=== PATIENT | male | born 1935 | race Caucasian/White ===

== ENCOUNTER 2022-10-10 14:09 | Observation (INO) | payer MEDICARE, OTHER, SELFPAY ==
[2022-10-10] VITALS (21 sets, daily range): BP systolic 116–158; BP diastolic 50–94; PULSE 57–94; RESP 13–20; TEMP 36.3–36.8; O2SAT 95–99; BMI 21.4
--- NOTE | 2022-10-10 | XR_ITS ---
WS: [id number] Left ankle, C-arm fluoroscopy views, 10/10/2022 1753 hours Clinical Data: ORIF LEFT ANKLE Comparison: Left ankle, yesterday, 1445 hours Findings: Dr. Chavira performed internal fixation of a bimalleolar fracture of the left ankle. XR/XR ankle LT min 3V* [id number] Impression: Internal fixation of bimalleolar fracture of left ankle.
--- NOTE | 2022-10-10 14:13 | XRR_ITS ---
PROCEDURE INFORMATION: Exam: XR Left Ankle Exam date and time: 10/10/2022 2:14 PM Age: 87 years old Clinical indication: Pain; Ankle; Left; Additional info: Injury TECHNIQUE: Imaging protocol: Radiologic exam of the Left ankle. Views: 3 or more views. COMPARISON: No relevant prior studies available. FINDINGS: Bones/joints: There is a displaced bimalleolar fracture with subluxation of the tibia in relation to the talus toward medial aspect of the ankle. A bone spurs present on the inferior calcaneus. Soft tissues: Soft tissue edema is seen in the lateral and anterior ankle XR/XR ankle LT min 3V* [id number] IMPRESSION: 1. Bimalleolar fracture dislocation as described. 2. Soft tissue edema lateral and anterior below ankle
--- NOTE | 2022-10-10 14:14 | ED_ITS ---
HPI - Fall General: Chief Complaint: Fall Stated Complaint: L Ankle Pain Time Seen by Provider: 10/10/22 14:09 Source: patient and EMS Mode of arrival: EMS Limitations: no limitations History of Present Illness: This gentleman was transported to the emergency department by EMS. He apparently had went out shopping today and returned home and upon getting out of his truck slipped on the ice twisting his left ankle. He could not bear weight and noted that seem to be deformed. He denied any other injury to include head injury, back neck injury. He denied loss of consciousness. EMS arrived on scene placed him in a position of comfort immobilize left ankle, gave him 100 mics of fentanyl and transported to the emergency department which and reported he remained stable throughout that process. Patient denies taking any blood thinning or anticoagulant medication. He denies any history of heart failure or heart disease arrhythmia etc. MD complaint: fall Fall from: standing Fall witnessed: no Place fall occurred: home Loss of consciousness: None Context: tripped/slipped Location of injury - extremities: Left: ankle Associated symptoms-after fall: Denies chest pain, headache(s) or neck pain Review of Systems Const: Denies: fever(s) or chills Eyes: Denies: change in vision or blurry vision Card: Denies: chest pain, palpitations, syncope or pre-syncope Resp: Denies: dyspnea, productive cough or non-productive cough GI: Denies: nausea or vomiting Musc: Reports: extremity pain, extremity swelling, joint pain and joint swelling; Denies: neck pain or back pain Skin/Breast: Denies: rash or pruritus Neuro: Denies: headache(s), numbness in extremities or weakness in extremities Ramone/Lymph: Denies: easy bruising or easy bleeding Physical Exam Narrative: EXAM NARRATIVE: Is alert and cooperative and in no acute distress. Const: COMMON NORMALS: no acute distress, average body habitus, patient oriented x3 and alert GENERAL APPEARANCE: cooperative and comfortable HENMT: COMMON NORMALS: normocephalic, atraumatic, Normal nasal mucous membranes and turbinates present and moist oral mucous membranes HEAD & SCALP: normocephalic and atraumatic FACE & SINUS: normal facial exam NOSE: Normal nasal mucous membranes and turbinates present Eye: COMMON NORMALS: Equal, round and reactive pupils present, EOMs intact bilaterally and conjunctivae normal CONJUNCTIVA: Yes conjunctivae normal PUPIL: Yes Equal, round and reactive pupils present Neck/C-Spine: CERVICAL SPINE: Yes cervical ROM normal, No Cervical spine tenderness, No step off deformity, No Paracervical muscle tenderness, No Paracervical spasm and No Trapezius muscle tenderness Chest: COMMONS NORMALS: normal inspection of the chest and normal palpation of entire chest wall Resp: COMMON NORMALS: normal respiratory effort, No retractions and clear to auscultation bilaterally EFFORT & INSPECTION: Yes able to speak in complete sentences AUSCULTATION: clear to auscultation bilaterally Cardio: COMMON NORMALS: regular rate, regular rhythm, No murmurs present (Cardio) and Peripheral pulses 2+ throughout RATE: regular rate RHYTHM: regular rhythm PERIPHERAL PULSES: Peripheral pulses 2+ throughout GI: COMMON NORMALS: Normal to inspection, nondistended, normoactive bowel sounds present and Soft to palpation PALPATION: Yes Soft to palpation : COMMON NORMALS: Yes no CVA tenderness BLADDER/KIDNEY EXAM: Yes no CVA tenderness Back/Pelvis: COMMON NORMALS: no CVA tenderness, thoracic and lumbar spine normal to inspection, no thoracic nor lumbar tenderness and thoraco-lumbar ROM normal PELVIS: Yes no pain with anterior-posterior compression and Yes no p ain with lateral compression Extremity: COMMON NORMALS: capillary refill normal and no calf tenderness LEFT LOWER EXTREMITY: Yes ankle joint (Is noted to have a varus deformity of his left ankle with tenting of the sk) OTHER: Apart from his left ankle injury no other extremity injury, deformity, abrasion, the tenderness noted on clinical examination Neuro: COMMON NORMALS: patient oriented x3, moves all extremities and no focal motor deficits SENSORIUM/ORIENTATION: Yes alert CRANIAL NERVES: Yes CN normal except as noted Psych: COMMON NORMALS: mental status grossly normal Skin: COMMON NORMALS: turgor normal NARRATIVE SKIN EXAM: He has tenting and skin breakdown over the left ankle medially. GENERAL SKIN EXAM: turgor normal Procedures Orthopedic Fracture Reduction Fracture #1: Time Out Performed: Yes Side: left (Ankle) Analgesia: procedural sedation (Fentanyl 0.5 mg/kg, propofol 0.5 mg/kg) Technique: direct manipulation Post Reduction X-rays Demonstrate: anatomical reduction Post-reduction neuro exam: intact Post-reduction vascular exam: intact Splint Applied: Yes (Posterior, stirrup splint) Patient Tolerated Procedure: well Additional Comments: Patient tolerated procedure well. No desaturation or other changes in vital signs throughout his procedural sedation. He was under constant monitoring by RN, attending physician as well as respiratory therapy. Course Reevaluation(s): Reevaluation #1: Patient remains clinically stable with normal vital signs at this time. I discussed his current condition and plans for orthopedic surgery to evaluate and plan for operative fixation of his ankle dislocation fracture. Time: 15:47 Consultations: Consultation #1: Discussed with orthopedic surgeon Dr. Horne. Discussed current presentation. Time: 14:28 Consultation #2: Discussed with Dr. Slaughter he agrees to admit the patient for orthopedic consultation Time: 15:48 Vital Signs: Vital signs: Vital Signs Temperature 98.3 F 10/10/22 14:09 Pulse Rate 61 10/10/22 14:55 Respiratory Rate 13 10/10/22 14:55 Blood Pressure 141/50 10/10/22 14:43 Pulse Oximetry 98 10/10/22 14:55 Oxygen Delivery Me thod 10/10/22 14:55 Oxygen Flow Rate 2 10/10/22 14:55 MDM - Fall Medical Decision Making 87-year-old gentleman who had a slip and ground-level fall on ice while getting out of his truck this morning. No associated head trauma, loss of conscious etc. No free injury syncope palpitations or other prodrome. Transported by EMS to our facility in stable condition immobilized. Upon arrival he was noted to have significant deformity of left ankle with tenting of skin. Initial preliminary movement of ankle mortise to reduce tenting. Subsequent x-rays revealed bimalleolar fracture. Patient was then treated with procedural sedation and a near anatomic reduction of his left ankle was performed and he was placed in immobilization with posterior and stirrup splint. Orthopedist was consulted who plans on taking him to the operating room later today for operative operative fixation. Patient was given 1 g of Ancef in the emergency department. Medical Records I reviewed the patient's medical records. Lab Data I reviewed the patient's lab results. 10/10/22 13:09 10/10/22 13:09 Radiology Impressions Ankle X-Ray 10/10/22 14:40 IMPRESSION: Marked improvement in the fracture alignment involving the distal tibia and fibula postreduction. Laboratory Results WBC 5.4 10^3/uL (4.0-10.0) 10/10/22 13:09 RBC 3.17 10^6/uL (4.1-5.3) L 10/10/22 13:09 Hgb 9.7 g/dL (11.7-16.6) L 10/10/22 13:09 Hct 31.4 % (42.0-52.0) L 10/10/22 13:09 MCV 99.1 fl (80-94) H 10/10/22 13:09 MCH 30.6 pg (28.0-34.0) 10/10/22 13:09 MCHC 30.9 g/dL (30.0-36.0) 10/10/22 13:09 RDW 16.2 % (12.1-15.1) H 10/10/22 13:09 Plt Count 169 10^3/cmm (130-400) 10/10/22 13:09 MPV 10.7 fL (7.4-10.4) H 10/10/22 13:09 Neut % (Auto) 63.4 % 10/10/22 13:09 Lymph % (Auto) 26.2 % 10/10/22 13:09 [place] % (Auto) 8.3 % 10/10/22 13:09 Eos % (Auto) 0.9 % 10/10/22 13:09 Baso % (Auto) 0.6 % 10/10/22 13:09 Neut # (Auto) 3.44 10^3/uL (1.8-7.7) 10/10/22 13:09 Lymph # (Auto) 1.4 10^3/uL (0.8-4.8) 10/10/22 13:09 [place] # (Auto) 0.5 10^3/uL (0.2-0.9) 10/10/22 13:09 Eos # (Auto) 0.1 10^3/uL (0.0-0.8) 10/10/22 13:09 Baso # (Auto) 0.0 10^3/uL (0.0-0.1) 10/10/22 13:09 Nucleated RBC % (auto) 0 % 10/10/22 13:09 Nucleated RBCs # 0.0 /100WBC 10/10/22 13:09 Sodium 139 mmol/L (136-145) 10/10/22 13:09 Potassium 3.6 mmol/L (3.5-5.1) 10/10/22 13:09 Chloride 108 mmol/L (98-107) H 10/10/22 13:09 Carbon Dioxide 18 mmol/L (22-29) L 10/10/22 13:09 Anion Gap 16.6 (5-19) 10/10/22 13:09 BUN 25 mg/dL (8-23) H 10/10/22 13:09 Creatinine 1.1 mg/dL (0.7-1.2) 10/10/22 13:09 GFR Calculation Not Reportable 10/10/22 13:09 Glucose 123 mg/dL (65-115) H 10/10/22 13:09 Calculated Osmolality 294 mOsm/kg (285-295) 10/10/22 13:09 Calcium 8.3 mg/dL (8.5-10.5) L 10/10/22 13:09 EKG Data EKG 1: I personally reviewed and interpreted this EKG as follows: Interpretation: Contemporaneous review of resting EKG reveals ventricular rate of 83 bpm. RI interval is shortened at 96 ms. QRS duration is normal. Corrected QT interval is also normal. He has a slight borderline leftward axis. Possible borderline right bundle branch block. No acute ST-T wave changes noted. No prior tracings within this medical record Discharge Plan Discharge Patient Disposition: Placed in Observation Clinical Impression: Open fracture dislocation of left ankle Coding Level of Care Code ED Inshore Undersea Warfare Officer for Esteban Fwkristine Exam Comprehensive
[2022-10-10] MEDS: ceFAZolin 1,000 MG in sodium chloride 0.9% (plus) 50 ML 100 MG IV ×2 (14:26→16:43)
[2022-10-10 14:32] LABS: Basophils % 0.6 %; Eosinophils # 0.1 10^3/uL (0.0-0.8); Eosinophils % 0.9 %; Hematocrit 31.4 % (42.0-52.0); Hemoglobin 9.7 g/dL (11.7-16.6); Lymphocytes # 1.4 10^3/uL (0.8-4.8); Lymphocytes % 26.2 %; Mean Corpuscular HGB Conc 30.9 g/dL (30.0-36.0); Mean Corpuscular Hemoglobin 30.6 pg (28.0-34.0); Mean Corpuscular Volume 99.1 fl (80-94); Mean Platelet Volume 10.7 fL (7.4-10.4); Monocytes # 0.5 10^3/uL (0.2-0.9); Monocytes % 8.3 %; Neutrophils # 3.44 10^3/uL (1.8-7.7); Neutrophils % 63.4 %; Nucleated Red Blood Cells % 0 %; Platelet Count 169 10^3/cmm (130-400); Red Blood Count 3.17 10^6/uL (4.1-5.3); Red Cell Distribution Width 16.2 % (12.1-15.1); White Blood Count 5.4 10^3/uL (4.0-10.0)
[2022-10-10] MEDS: fentaNYL 50 mcg/mL INJ 2mL 35 MCG IVP (14:38)
[2022-10-10] MEDS: propofol 10 mg/mL SDV 20 mL 40 MG IVP (14:39)
--- NOTE | 2022-10-10 14:40 | XR_ITS ---
WS: [id number] LEFT ANKLE: 2 VIEW(S) TECHNIQUE: AP and lateral. HISTORY: Postreduction. COMPARISON: Study earlier the same day. Much improved alignment involving the tibiotalar joint space. Ankle is been reduced with near normal alignment of the distal tibial and fibular fractures. Osteopenia. XR/XR ankle LT 2V [id number] IMPRESSION: Marked improvement in the fracture alignment involving the distal tibia and fib yash postreduction.
[2022-10-10 14:55] LABS: Anion Gap 16.6 (5-19); Blood Urea Nitrogen 25 mg/dL (8-23); Calcium 8.3 mg/dL (8.5-10.5); Carbon Dioxide 18 mmol/L (22-29); Chloride 108 mmol/L (98-107); Creatinine Clr Calc Pharmacy 45.1247; Glucose 123 mg/dL (65-115); Osmolality Calculated 294 mOsm/kg (285-295); Potassium 3.6 mmol/L (3.5-5.1); Sodium 139 mmol/L (136-145)
--- NOTE | 2022-10-10 15:23 | ECG_ITS ---
[facility] Test Date: 2022-10-10 Pat Name: Bernarda Mendoza Department: Room: Gender: Male General Duty Nurse: : 1935 Requested By: Enrique Donato Order Number: [id number] Aubree MD: Sagar Scott M.D. Measurements Intervals [place] Rate: 83 P: -27 AR: 96 QRS: -21 QRSD: 100 T: -8 QT: 400 QTc: 470 Interpretive Statements SINUS RHYTHM WITH SHORT AR INTERVAL WITH OCCASIONAL SUPRAVENTRICULAR PREMATURE COMPLEXES BORDERLINE LEFT AXIS DEVIATION [QRS AXIS < -20] INCOMPLETE RIGHT BUNDLE BRANCH BLOCK [90+ ms QRS DURATION, TERMINAL R IN V1/V2, 40+ ms S IN I/aVL/V4/V5/V6] VOLTAGE CRITERIA FOR LVH [MEETS CRITERIA IN ONE OF: R(aVL), S(V1), R(V5), R(V5/V6)+S(V1)] No previous ECG available for comparison Electronically Signed On 10-10-2022 16:27:16 PHYTOPATHOLOGY TEACHER by Sagar Scott M.D. [id number]
--- NOTE | 2022-10-10 16:08 | PM.CONSULT ---
Providers/Reason For Consult Consulting Physician/Specialty*: Kishor Chavira DO/orthopedic surgery Reason for Consult*: Left bimalleolar ankle fracture dislocation with medial skin tenting and impending open fracture Requesting Physician: Dr. Donato Attending Physician: Hospitalist History of Present Illness History of Present Illness Bernarda Mendoza is a 87 year old male sustained a ground-level fall on the ice getting out of his truck this morning. Denies any injury to his head or any loss of consciousness. Denies any syncopal or prodromal episodes. He was brought into the emergency department for evaluation of his left ankle as he had significant deformity no bleeding noted. Patient on x-rays was found to have bimalleolar ankle fracture dislocation of the left ankle. On examination by the emergency department was found to have skin tenting as result orthopedic surgery was consulted. Emergency department performed emergent reduction. Patient denies any history of diabetes mellitus. Denies any chest pain shortness of breath nausea or vomiting. Review of Systems General: Reports: 10 or more systems reviewed and unremarkable except in HPI and below Const: Denies: fever(s) Card: Denies: chest pain Resp: Denies: dyspnea GI: Denies: nausea or vomiting Musc: Reports: extremity pain, extremity swelling and joint swelling Medications/Allergies Home Medications Medication Instructions Recorded Confirmed Last Taken Type amlodipine 2.5 mg tablet (Norvasc) 2.5 mg PO DAILY 10/10/22 10/10/22 Unknown History ferrous sulfate 325 mg (65 mg 325 mg PO DAILY 10/10/22 10/10/22 Unknown History iron) tablet (FeroSul) fluconazole 200 mg tablet 200 mg PO DAILY 10/10/22 10/10/22 Unknown History Allergies Allergy/AdvReac Type Severity Reaction Status Date / Time nkda Allergy Unknown Uncoded 10/10/22 16:07 PFSH Acute PFSH: Medical History (Updated 10/10/22 @ 16:18 by Kishor Chavira DO) Fracture dislocation of left ankle Vitals/I&O/Wt Last Vital Signs Temp 98.3 F 10/10/22 14:09 Pulse 61 10/10/22 14:55 Resp 13 10/10/22 14:55 BP 141/50 10/10/22 14:43 Pulse Ox 98 10/10/22 14:55 O2 Del Method 10/10/22 14:55 O2 Flow Rate 2 10/10/22 14:55 10/10/22 10/10/22 10/10/22 06:59 14:59 22:59 Intake Total 50 / 50 Balance 50 / 50 Weight last 48 hrs Weight 145 lb Physical Exam Narrative: Constitutional?patient is alert and cooperative and in no acute distress HEENT normocephalic atraumatic Respiratory?no acute respiratory distress, no retractions MSK?examination of the left lower extremity demonstrates posterior short leg splint on in place well-padded splint limiting full examination however patient is able to wiggle toes he does endorse sensation tact light touch of the toes. Sensation intact to light touch to the SPN and DPN nerve distribution splint limits saphenous sural and tibial nerve distribution examination. Toes have brisk capillary refill less than 3 seconds. No tenderness palpation of the left knee or proximal tib-fib. Negative logroll bilaterally to the bilateral lower extremities. Secondary survey examination unremarkable is normal range of motion of the bilateral upper extremity joints and no pain with range of motion. Splint not taken down: previous clinical images from emergency department physician were reviewed and showed medial skin tenting and medial soft tissue compromise with no complete exposed bone and no active bleeding consistent with skin tenting and impending open injury if left alone. Data 10/10/22 13:09 10/10/22 13:09 Xray Ortho: My impression: Initial x-rays in the emergency department demonstrate a left bimalleolar fracture dislocation with concern for possible skin tenting on the medial side Postreduction by emergency department team x-rays show stable interval reduction joint appears to be located and splint applied, offloading of the medial soft tissue noted. A&P Assessment and plan (1) Fracture dislocation of left ankle: Left bimalleolar ankle fracture dislocation, with medial skin tenting and impending open injury Plan MDM: Patient is a 87-year-old male who sustained a slip on the ice sustaining a left bimalleolar ankle fracture dislocation brought to the emergency department was found to have medial skin tenting and wound compromise. No open wound with directly exposed bone and no active bleeding noted. At this point time concern for impending open injury if left alone. Emergency department consulted myself orthopedic surgery for recommendations. At this point time at emergency department team perform emergent closed reduction and splinting for stabilization and plan for taking to the OR today for left bimalleolar ankle fracture open reduction internal fixation to prevent an impending open injury. Given the medial compromise and attenuated skin and given his older age we will plan for ORIF of the distal fibula my hope is at that time the medial malleolus will be in appropriate alignment and will plan to bypass the proximal attenuated medial soft tissue over the medial malleolus and just percutaneously fix the medial malleolus with 4.0mm cannulated screws in order to avoid a open incision over already attenuated tissue. Patient understands and agrees with current plan. All questions answered. At this point time given the impending open nature this would recommend at this go to the OR emergently for surgical intervention. Patient understands risk benefits complication alternatives surgical and nonsurgical treatment options. Risks of surgery include but not limited to make a better make it worse, blood clot, heart attack, stroke, on table, wound complications, wound dehiscence, infection, malunion, nonunion, posttraumatic arthritis. Understanding these risks he agrees to proceed with surgical intervention we will get him added onto the surgery schedule emergently for left bimalleolar ankle fracture ORIF. N.p.o. Hospitalist to admit for medical management Reduced in the emergency department and placed in a splint Nonweightbearing left lower extremity Ice and elevate Pain control Perioperative antibiotics Plan for ORIF left bimalleolar ankle fracture emergently today. Coding Level of Care Code Acute Code for g Fwd Diagnoses Fracture dislocation of left ankle S82.892A Time Spent (min) 50
--- NOTE | 2022-10-10 16:16 | ANES.PREANE2 ---
Pre-Anesthetic Assessment Height/Weight: Height 1.75 m Weight 65.771 kg Temp Pulse Resp BP Pulse Ox O2 Del Method O2 Flow Rate 98.3 F 61 13 141/50 98 2 10/10/22 14:09 10/10/22 14:55 10/10/22 14:55 10/10/22 14:43 10/10/22 14:55 10/10/22 14:55 10/10/22 14:55 Preop Diagnosis: Left bimalleolar ankle fracture dislocation, skin tenting Operation Date: 10/10/22 16:30 Proposed Procedures p ORIF Ankle(Left) - Kishor Chavira, Familial anesthetic complications: none Was Beta Jeevan taken within 24 hours: N/A Was Clonidine taken within 24 hours: N/A Last intake: Intake Last Liquid Date 10/10/22 Last Liquid Time 11:00 Last Solid Date 10/10/22 Last Solid Time 11:00 Social No alcohol and No tobacco Exam alert, oriented x 3, clear to auscultation bilaterally and regular rate & rhythm Airway Submandibular: within normal limits Cervical ROM: within normal limits Mallampati: Class II Dentition: chipped CV/HEM Anemia and Hypertension Musc/skel left ankle frx Anesthetic Plan ASA status: 3 Anesthesia: General and Regional (specify below) (Discussed postop right pop blk for pain) Medications/Allergies Home Medications Medication Instructions Recorded Confirmed Last Taken Type amlodipine 2.5 mg tablet (Norvasc) 2.5 mg PO DAILY 10/10/22 10/10/22 Unknown History ferrous sulfate 325 mg (65 mg 325 mg PO DAILY 10/10/22 10/10/22 Unknown History iron) tablet (FeroSul) fluconazole 200 mg tablet 200 mg PO DAILY 10/10/22 10/10/22 Unknown History Allergies Allergy/AdvReac Type Severity Reaction Status Date / Time nkda Allergy Unknown Uncoded 10/10/22 16:07 Data Anesthesia 10/10/22 13:09 10/10/22 13:09 Short CBC 10/10/22 Range/Units 13:09 WBC 5.4 (4.0-10.0) 10^3/uL Hgb 9.7 L (11.7-16.6) g/dL Hct 31.4 L (42.0-52.0) % MCV 99.1 H (80-94) fl Plt Count 169 (130-400) 10^3/cmm Neut % (Auto) 63.4 % Neut # (Auto) 3.44 (1.8-7.7) 10^3/uL BMP 10/10/22 13:09 Sodium 139 Potassium 3.6 Chloride 108 H Carbon Dioxide 18 L BUN 25 H Creatinine 1.1 Glucose 123 H Calcium 8.3 L Cardiac Studies: No Data to Display
[2022-10-10] MEDS: ketorolac 30 mg/mL INJ IVP (16:33)
[2022-10-10] MEDS: sodium chloride 0.9% 1,000 ML 30 ML IV (16:33)
--- NOTE | 2022-10-10 16:44 | P.HP_ITS ---
Providers/Chief Complaint Chief Complaint: L Ankle Pain History of Present Illness Bernarda Mendoza is a 87 year old male with a past medical history of hypertension, iron deficiency anemia, who presents [facility] as he was getting out of his truck, slipped on the ice twisting his left ankle, was not able to bear weight, no head trauma, no loss of consciousness. He is found to have a closed left ankle fracture, reduced in the emergency room, hospitalist team was called for admission. I was able to get some of the history from patient's , she tells me that he does not have a cardiovascular treatment history of strokes no history of diabetes does have hypertension. Recently in August he had a hospital admission at [facility] in [facility] for iron deficiency anemia, hemorrhagic shock, GI bleed, required 3 units PRBC, and ICU admission. They did an EGD and colonoscopy without a source of bleeding. He was readmitted 1 more time after that, again no source of bleeding was found. No history of DVT or PEs. He does have a family history of colon cancer. They did say that if he were to bleed again he would need another colonoscopy. He is on oral iron tablets. Overall she tells me he is doing well, no recent health issues in the last month or so, patient was seen in postop recovery, he responds to his name, but falls back asleep, still under the effect of anesthetic, Review of Systems General: Reports: ROS unobtainable due to mental status Medications/Allergies Home Medications Medication Instructions Recorded Confirmed Last Taken Type amlodipine 2.5 mg tablet (Norvasc) 2.5 mg PO DAILY 10/10/22 10/10/22 Unknown History doxazosin 8 mg tablet (Cardura) 8 mg PO DAILY 10/10/22 10/10/22 Unknown History ferrous sulfate 325 mg (65 mg 325 mg PO BID 10/10/22 10/10/22 Unknown History iron) tablet (FeroSul) fluconazole 200 mg tablet 200 mg PO DAILY 10/10/22 10/10/22 Unknown History fluticasone propionate 50 1 spray intranasal DAILY 10/10/22 10/10/22 Unknown History mcg/actuation nasal spray,suspension lisinopril 10 mg tablet 10 mg PO DAILY 10/10/22 10/10/22 Unknown History loratadine 10 mg tablet (Claritin) 10 mg PO DAILY 10/10/22 10/10/22 Unknown History multivitamin with folic acid 400 1 tab PO DAILY 10/10/22 10/10/22 Unknown History mcg tablet (Tab-A-Danial) rosuvastatin 5 mg tablet (Crestor) 5 mg PO DAILY 10/10/22 10/10/22 Unknown H istory Allergies Allergy/AdvReac Type Severity Reaction Status Date / Time nkda Allergy Unknown Uncoded 10/10/22 16:07 PFSH Acute PFSH: Medical History (Updated 10/10/22 @ 18:11 by Emil Morales MD) Fracture dislocation of left ankle HTN (hypertension), benign Iron (Fe) deficiency anemia Surgical History (Updated 10/10/22 @ 18:00 by Emil Morales MD) History of colonoscopy History of esophagogastroduodenoscopy (EGD) History of parathyroid surgery Family History (Updated 10/10/22 @ 17:57 by Emil Morales MD) Mother Colon cancer Social History (Updated 10/10/22 @ 17:57 by Emil Morales MD) Smoking and tobacco status: former smoker Alcohol intake: never Substance/Drug Use: never Vitals/I&O/Wt Last Vital Signs Temp 97.5 F L 10/10/22 16:00 Pulse 90 10/10/22 16:00 Resp 17 10/10/22 16:00 BP 158/94 10/10/22 16:00 Pulse Ox 97 10/10/22 16:00 O2 Del Method 10/10/22 16:00 O2 Flow Rate 2 10/10/22 14:55 10/10/22 10/10/22 10/10/22 06:59 14:59 22:59 Intake Total 50 / 50 Balance 50 / 50 Weight last 48 hrs Weight 65.771 kg Physical Exam Const: COMMON NORMALS: no acute distress ORIENTATION/CONSCIOUSNESS: Yes awake and Yes oriented to person; not oriented to place and not oriented to time OTHER: Still under the effect of anesthetic HENMT: COMMON NORMALS: normocephalic HEAD & SCALP: normocephalic Eye: COMMON NORMALS: Equal, round and reactive pupils present Neck/C-Spine: COMMON NORMALS: no JVD OTHER: Horizontal incision scar Lymph: LYMPHATIC: no lymphadenopathy noted Chest: COMMONS NORMALS: normal inspection of the chest Resp: COMMON NORMALS: normal respiratory effort, No retractions, No use of accessory muscles and clear to auscultation bilaterally AUSCULTATION: clear to auscultation bilaterally Cardio: COMMON NORMALS: no JVD, regular rate, regular rhythm, S1 normal heart sound present and S2 normal heart sound present RATE: regular rate RHYTHM: regular rhythm HEART SOUNDS: S1 normal heart sound present and S2 normal heart sound present GI: COMMON NORMALS: Normal to inspection, nondistended, normoactive bowel sounds present, Soft to palpation and non-tender Extremity: COMMON NORMALS: no pedal edema Neuro: OTHER: Difficult to do neurologic testing under the effect of anesthetic Psych: COMMON NORMALS: mental status grossly normal Data 10/10/22 13:09 10/10/22 13:09 A&P Assessment and plan (1) Iron (Fe) deficiency anemia: (2) History of GI bleed: (3) HTN, goal below 130/80: (4) Fracture dislocation of left ankle: (5) Hyperglycemia: Plan Left ankle fracture -Status postsurgical intervention by Dr. Chavira -Pain control morphine -Zofran for nausea -Nonweightbearing left lower extremity -SCDs for DVT prophylaxis for now, will discuss with Dr. Chavira about DVT prophylaxis given history of GI bleed -No Díaz catheter placed, will bladder scan, if more than 200 cc, will straight cath, if he still drowsy we might need to put in a Díaz catheter History of GI bleed, hemorrhagic shock, iron deficiency anemia -Back in August required 3 units of packed red blood cells, patient has status post EGD and colonoscopy without any acute source of bleed -His hemodynamics were stable in ER, hemoglobin 9.7, iron studies ordered -We will need to monitor hemoglobin closely -Placed on Protonix, Carafate History of hypertension, continue blood pressure medications Hyperglycemia, A1c Attestations Medical Necessity Statement*: Patient requires hospitalization, outpatient for observation, for left ankle fracture Coding Level of Care Code Acute Code for Chg Fwd Exam Comprehensive Diagnoses Iron (Fe) deficiency anemia D50.9 History of GI bleed Z87.19 HTN, goal below 130/80 I10 Fracture dislocation of left ankle S82.892A Hyperglycemia R73.9
--- NOTE | 2022-10-10 18:15 | PM.OP2 ---
Brief Operative Note Date of procedure: 10/10/22 Pre-op diagnosis: Left bimalleolar ankle fracture dislocation, skin tenting Post-op diagnosis: same (Left ankle syndesmosis injury) Procedure Done: Left ankle bimalleolar fracture dislocation open reduction internal fixation Left ankle syndesmosis stress examination Left ankle syndesmotic screw fixation Surgeon: Kishor Chavira Estimated blood loss (mL): 10 Complications: None Post-op Plan: Patient taken to PACU in stable condition recovering well. Splint on in place clean dry and intact. Patient is able to wiggle toes. Toes warm well perfused. Distal pulse palpable. Will be admitted to the floor postoperatively. Will receive appropriate perioperative antibiotics. Elevation and ice. Nonweightbearing left lower extremity. Internal medicine admitting patient on board as primary for medical management. Orthopedics will continue to follow. Condition: stable Disposition: floor Coding Level of Care Code Acute Code for Chg Fwd
--- NOTE | 2022-10-10 18:18 | PM.PACU ---
PACU note Narrative: Patient taken to PACU in stable condition. Patient recovering well postoperatively. Splint on in place clean dry and intact. Patient is able to wiggle toes. He endorses sensation intact light touch of the toes. DP pulses palpable. Toes are warm well-perfused brisk capillary refill less than 3 seconds. Exam: awake Disposition: admitted
--- NOTE | 2022-10-10 18:18 | PM.OP ---
Operative Report Date of procedure: October 10, 2022 Pre-op diagnosis: Preop Diagnosis Left bimalleolar ankle fracture dislocation, skin tenting Post-op diagnosis: Left bimalleolar ankle fracture dislocation, with medial wound compromise, no open wound found on examination Procedure done: Left distal fibula open reduction internal fixation Left medial malleolus closed reduction and percutaneous screw fixation Left ankle syndesmotic fixation Implants: [employer] 5 hole anatomic distal fibula plate 1 x 2.7 mm interfragmentary lag screw Combination of locking and nonlocking screws both proximally and distally Medial malleolus fixation 2 x 4.0 mm partially-threaded cannulated screws Syndesmotic screw fixation-fully threaded 3.5 mm cortical screw Surgeon: Kishor Chavira DO Estimated blood loss: 10 mL 33 minutes IV fluids: 700 mL IV fluids Complications: None Condition: stable Disposition: floor Brief History: Patient sustained a ground-level fall slipping on the ice getting out of his truck. He was found to have a left ankle bimalleolar fracture dislocation with skin tenting concerning findings for impending open injury. At this point time orthopedics was consulted. Emergency department instructed for emergent closed reduction and splinting and plan was to take patient to the OR emergent leave for left bimalleolar ankle fracture open reduction internal fixation. Had detailed discussion with the patient about his injury concern was for medial soft tissue compromise and in order to eliminate injury turning into an open injury patient was taken back to the OR emergently. He was seen evaluated by myself in the emergency department already splinted with interval improvement in his alignment. Given patient's age as well as instability of the fracture as well as concern for medial soft tissue compromise plan was to take patient back emergently for fixation. He understands the inherent nature of his injury. He is an active 87-year-old. Patient is not a diabetic. He is lives with his she was contacted and informed of current recommendations we did talk about nonoperative versus operative intervention. Obviously concerning for the skin tenting and medial compromise recommended surgical intervention. Through shared decision making agreed to proceed with surgery for left bimalleolar ankle fracture open reduction internal fixation. All questions been answered at this time. Consent obtained by patient. Procedure: Patient seen and evaluated in the preoperative holding area. Consent was reviewed and signed with patient. Correct extremity was then subsequently marked. Splint on in place. Patient was seen evaluate by Anesthesia Department. Patient taken back to the OR emergently cleared for surgical intervention. Patient then was transported onto the OR table in supine position. All bony prominences well-padded patient was properly secured to the bed. Underwent anesthesia per the anesthesia department. The left lower extremity was then placed with a nonsterile tourniquet to the left thigh. He was placed onto bone foam to the left lower extremity and bump was placed under the ipsilateral hip. Splint was subsequently taken down and patient soft tissue envelope was inspected. Laterally and medially at this point time there was a positive wrinkle sign the patient was amendable for surgical intervention acutely. The medial area of skin tenting appeared to be offloaded. There was no open wound or active bleeding however given patient's age and soft tissue envelope there was attenuation and breakdown of the medial malleolus soft tissue envelope proximal to the distal tip of the medial malleolus at the site of the fracture were original tenting was noted. There was no active bleeding or open wound at this point time this was declared this was not an open injury. However given the attenuation of his soft tissue envelope medially this would be in the direct site of a open medial malleolus incision plan was to percutaneously fix the medial malleolus to bypass compromising patient's medial wound and creating a potential site for wound dehiscence and/or infection. At this point time the left lower extremity was then prepped and draped in standard orthopedic fashion. Final timeout performed. Patient received appropriate preoperative antibiotics. Esmarch tourniquet was used exsanguinate the left lower extremity and tourniquet was insufflated to 250 mmHg. A standard direct lateral incision was made centering over the fracture of the lateral malleolus. Sharp scalpel incision was made strictly through skin. I then bluntly utilizing my finger mobilize patient soft tissue envelope and encountered fracture hematoma at the distal fibula site. I then utilized a hunt face elevator to elevate subperiosteally as well as to mobilize full thickness flaps and protect SPN nerve during my dissection. I had direct visualization of the fracture site. This was a short oblique fracture site in nature at the level of the syndesmosis. I opened both the fracture cleared this of fracture hematoma with dental pick and irrigation. I utilized my scalpel to free off the edges of the fracture site to allow for appropriate cortical read. This fracture appeared to be amendable for lag screw fixation with neutralization plating. Given his age plan for locking plate for added fixation. I then utilized a reduction clamp to reduce the oblique fracture of the distal fibula. Once satisfied with my reduction on large C arm imaging I then plan for lag screw fixation. This was subsequently drilled measured and a 2.7 mm interfragmentary lag screw was then placed in standard lag fashion. This had excellent purchase and fixation. I then selected appropriate length distal fibular anatomic locking plate from [employer]. This was then placed up to the distal fibula appropriate adjustments were made to put plate in appropriate placement once satisfied with this on fluoroscopic imaging I then secured the plate to bone drilling 1 proximal nonlocking screw to bring the plate to bone. Next I then placed 1 nonlocking screw at the distal fibula to compress the plate to bone distally. Once satisfied with my placement and multiple orthogonal images I then subsequently drilled and placed additional locking and nonlocking screws both proximally and distally to complete my neutralization plate. This had satisfactory distal fibular reduction and fixation. Next my attention was turned towards the medial malleolus. Once again given the medial soft tissue envelope compromise my plan was not to open this fracture given this could be a site for wound dehiscence breakdown and possible infection. Once the fibula was reduced it was noted that patient's medial malleolus and the shoulder was congruent and reduced. At this point time plan was for a closed reduction and percutaneous partially-threaded cannulated screw fixation of the medial malleolus to hold this reduction and maintain the ankle mortise. I utilized Zak is 4.0 mm partially-threaded cannulated screws. I then placed my wires in parallel fashion in the distal extent percutaneously at the medial malleolus with plan to obtain physeal fixation. These were subsequently placed and confirmed to be in appropriate perpendicular fashion to the fracture sites and in parallel on the lateral imaging. Once satisfied with appropriate placement I then placed small stab incisions distally at the medial malleolus over healthy soft tissue envelope and utilized cannulated drill bit to drill the near cortex and then subsequently measured the wires and placed appropriate length partially-threaded 4.0 mm cannulated screws x2 with excellent fixation by hand. This completed my medial malleolus fixation and had a stable congruent ankle mortise. Next I brought in the C arm and took multiple orthogonal images of the AP ankle mortise and lateral was satisfied with my reduction. I then performed an external stress test and there was slight medial clear space opening and collapse of the lateral gutter. Given the opening of this I plan was for syndesmotic fixation for stability of the syndesmosis and again added fixation of the construct given patient's age. I subsequently held the ankle mortise reduced and the syndesmosis reduced manually and then subsequently drilled parallel to the joint for quad cortical fixation. Once drilled, I then measured and placed appropriate length 3.5 mm fully threaded cortical screw parallel to the joint with quad cortical fixation while maintaining my reduction of the ankle mortise and syndesmosis has had excellent fixation and added to my construct stability. I then once again stressed the syndesmosis and this was stable. Final x-rays were taken. I was satisfied with fixation at this time. Tourniquet was subsequently deflated. Hemostasis satisfactory. Wound bed was thoroughly irrigated. I then closed the lateral incision with interrupted 2-0 Vicryl suture and jin. The 2 small stab medial incisions were closed with jin. The attenuation of the medial skin was then covered with Xeroform, all incisions were covered with Xeroform 4 x 4's ABDs Curlex soft roll and a well-padded posterior splint was then applied keeping the patient's foot in neutral position. Patient was then awakened from anesthesia and taken to PACU in stable condition. Disposition: Patient taken PACU in stable condition. Recovering well. Patient will be admitted to the floor by the internal medicine team Will receive appropriate perioperative antibiotics. Patient will receive appropriate DVT prophylaxis. Pain control. Nonweightbearing left lower extremity. We will follow-up with me in the office in 2 weeks. Plan will be for hopefully discharge home tomorrow.
[2022-10-10 18:39] LABS: Estmated Average Glucose 105; Hemoglobin A1C 5.3 % (4.0-6.0)
[2022-10-10 18:42] LABS: LAB Peripheral Smear Sent for Review
--- NOTE | 2022-10-10 19:15 | XRR_ITS ---
PROCEDURE INFORMATION: Exam: XR Chest Exam date and time: 10/10/2022 7:29 PM Age: 87 years old Clinical indication: Cough; Additional info: SOB, confused TECHNIQUE: Imaging protocol: Radiologic exam of the chest. Views: 1 view. COMPARISON: No relevant prior studies available. FINDINGS: Lungs: There is a prominent skin fold projecting over the left mid lung zone somewhat limiting assessment. Right lung field is aerated and clear. Pleural spaces: Unremarkable. No pleural effusion. No pneumothorax. Heart/Mediastinum: Heart is borderline enlarged. There is fullness of mediastinal contours involving the aortopulmonary window and right tracheobronchial angle concerning for possible lymphadenopathy that should be further assessed on CT examination of the chest preferably with IV contrast. Vasculature: There is a 9 cm circumscribed rounded retrocardiac masslike density that may represent a tortuous thoracic aorta or hiatal hernia but should be confirmed on additional imaging. Bones/joints: Unremarkable for age. XR/XR chest 1V portable [id number] IMPRESSION: 1. Mildly abnormal mediastinal silhouette concerning for possible lymphadenopathy for which follow-up CT chest recommended for further assessment. 2. 9 cm retrocardiac mass possibly vascular nature secondary to hiatal hernia that can also be reassessed on CT examination chest. 3. Prominent skin fold limiting assessment of the left mid lung zone.
--- NOTE | 2022-10-10 19:15 | ECG_ITS ---
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 Measurements Intervals [place] Rate: 66 P: 71 NJ: 201 QRS: 1 QRSD: 101 T: 31 QT: 435 QTc: 458 Interpretive Statements SINUS RHYTHM WITH SINUS ARRHYTHMIA Compared to ECG 10/10/2022 20:34:45 Prolonged QT interval no longer present Electronically Signed On 10-11-2022 8:10:03 INCIDENT RESPONSE ENGINEER by Sagar Scott M.D. [id number]
[2022-10-10 20:04] LABS: Basophils % 0.5 %; Eosinophils % 0.5 %; Hematocrit 27.2 % (42.0-52.0); Hemoglobin 8.3 g/dL (11.7-16.6); Lymphocytes # 0.6 10^3/uL (0.8-4.8); Lymphocytes % 12.6 %; Mean Corpuscular HGB Conc 30.5 g/dL (30.0-36.0); Mean Corpuscular Hemoglobin 30.7 pg (28.0-34.0); Mean Corpuscular Volume 100.7 fl (80-94); Monocytes # 0.4 10^3/uL (0.2-0.9); Monocytes % 8.6 %; Neutrophils # 3.43 10^3/uL (1.8-7.7); Neutrophils % 77.3 %; Nucleated Red Blood Cells % 0 %; Platelet Count 141 10^3/cmm (130-400); Red Cell Distribution Width 16.1 % (12.1-15.1); White Blood Count 4.4 10^3/uL (4.0-10.0)
[2022-10-10] MEDS: pantoprazole 40 mg SDV IVP (20:09)
[2022-10-10] MEDS: sucralfate 1 gm Tablet PO (20:09)
[2022-10-10] MEDS: sodium chloride 0.9% 1,000 ML 100 ML IV (20:10)
[2022-10-10 20:23] LABS: Troponin(5th) Baseline 35 ng/L (0-15)
[2022-10-10 20:56] LABS: Calcium 7.8 mg/dL (8.5-10.5)
[2022-10-10 21:04] LABS: Creatine Phosphokinase 127 U/L (39-308); Ferritin 49 ng/mL (30-400); Iron 14 ug/dL (59-158); NT Pro B Type Natriuretic Pept 1609 pg/mL (0-450); Thyroid Stimulating Hormone 6.49 uIU/mL (0.27-4.20); Total Iron Binding Capacity 174 mcg/dl; Unsaturated Iron Binding 160 ug/dL (112-347); Vitamin B12 378 pg/mL (232-1245)
[2022-10-10 21:19] LABS: Glucose Point of Care 116 mg/dL (70-110)
[2022-10-10 22:00] LABS: Folate Level > 20.0 ng/mL (4.5-32.2)
[2022-10-10 22:12] LABS: Troponin 5 2HR 35.52 ng/L (0-15)
[2022-10-10 22:17] LABS: Troponin 5 2HR Delta 0.52 ABS# (0-10)
--- NOTE | 2022-10-10 22:31 | ECG_ITS ---
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 Measurements Intervals [place] Rate: 63 P: 60 ID: [id number] QRS: 3 QRSD: 110 T: 44 QT: 465 QTc: 477 Interpretive Statements SINUS RHYTHM WITH SINUS ARRHYTHMIA PROLONGED QT INTERVAL Compared to ECG 10/10/2022 15:23:51 Prolonged QT interval now present Short ID interval no longer present Incomplete right bundle-branch block no longer present Left ventricular hypertrophy no longer present Electronically Signed On 10-11-2022 8:09:57 PHOTO JOURNALIST by Sagar Scott M.D. [id number]
[2022-10-11] VITALS (8 sets, daily range): BP systolic 112–149; BP diastolic 64–82; PULSE 66–102; RESP 16–20; TEMP 36.4–36.9; O2SAT 95–97
[2022-10-11] MEDS: ceFAZolin 2,000 MG in sodium chloride 0.9% (plus) 50 ML 100 MG IV ×2 (00:05→09:35)
[2022-10-11 02:13] LABS: Basophils % 0.3 %; Eosinophils % 1.1 %; Hematocrit 25.7 % (42.0-52.0); Hemoglobin 7.8 g/dL (11.7-16.6); Lymphocytes # 0.5 10^3/uL (0.8-4.8); Lymphocytes % 13.8 %; Mean Corpuscular HGB Conc 30.4 g/dL (30.0-36.0); Mean Corpuscular Hemoglobin 30.1 pg (28.0-34.0); Mean Corpuscular Volume 99.2 fl (80-94); Mean Platelet Volume 10.1 fL (7.4-10.4); Monocytes # 0.5 10^3/uL (0.2-0.9); Monocytes % 12.7 %; Neutrophils # 2.55 10^3/uL (1.8-7.7); Neutrophils % 71.8 %; Nucleated Red Blood Cells % 0 %; Platelet Count 140 10^3/cmm (130-400); Red Blood Count 2.59 10^6/uL (4.1-5.3); White Blood Count 3.6 10^3/uL (4.0-10.0)
[2022-10-11 02:39] LABS: Anion Gap 12.6 (5-19); Blood Urea Nitrogen 22 mg/dL (8-23); Calcium 7.4 mg/dL (8.5-10.5); Carbon Dioxide 20 mmol/L (22-29); Chloride 114 mmol/L (98-107); Glucose 71 mg/dL (65-115); Osmolality Calculated 298 mOsm/kg (285-295); Potassium 3.6 mmol/L (3.5-5.1); Sodium 143 mmol/L (136-145)
[2022-10-11 02:40] LABS: Troponin 5 6HR 37.09 ng/L (0-15)
[2022-10-11 02:57] LABS: Troponin 5 6HR Delta 2.09 ng/L (0-12)
--- NOTE | 2022-10-11 04:45 | PC.NURSE ---
patient has rested quietly t/o the night, some confusion post surgery then alert/oriented x4, denies the need for pain medication, offered several times t/o the night, states i only have a short, sharp pain occasionally dressing to lle is dry/intact, pulse noted, toes/foot warm to touch, slightly elevated on pillow.
[2022-10-11 05:05] LABS: Add Urine Microscopic? YES; Bilirubin Urine Neg (Negative); Blood Urine Neg (Negative); Glucose Urine UA Norm (Normal); Ketones Urine Negative (Negative); Leukocyte Esterase Urine Negative (Negative); Mucus Urine 1+ /hpf; Nitrate Urine Negative (Negative); Protein Urine Trace (Negative); RBC Urine 0-4 /hpf (0-2); Squamous Epithelial Cell Urine 0-4 /hpf (0-5); Urine Appearance Clear (CLEAR); Urine Color Yellow (Yellow); Urobilinogen Urine Norm (Negative); pH Urine 5 (5-7)
[2022-10-11 05:06] LABS: Add Urine Culture? No; Amorphous Sediment Urine 1+ /hpf; Fine Granular Casts Urine 0-4 /lpf; Hyaline Casts Urine 0-4 /lpf; Uric Acid Crystals Urine N /hpf
[2022-10-11] MEDS: sodium chloride 0.9% 1,000 ML 100 ML IV (06:10)
--- NOTE | 2022-10-11 06:42 | CT_ITS ---
WS: [id number] CT CHEST WITHOUT INTRAVENOUS CONTRAST HISTORY: Possible mediastinal mass. TECHNIQUE: Contiguous 5 mm axial imaging performed on the thorax. Coronal and sagittal reformats are submitted. All CT scans at [facility] use at least one of these dose optimization techniques: automated exposure control; mA and/or kV adjustment per patient size (includes targeted exams where dose is matched to clinical indication); or iterative reconstruction. CONTRAST: None DLP: 391.14 mGy.cm COMPARISON: Chest radiograph 10/10/2022 Lungs and central airway: Small bilateral pleural effusions, RIGHT greater than LEFT with atelectasis . No pulmonary congestion or pneumonia. No mass. Pleura: Small bilateral pleural effusions, RIGHT greater than LEFT. Heart and pericardium: Mild cardiomegaly. There is a small pericardial effusion. Mediastinum and robbie: Mediastinum is difficult to evaluate without IV contrast. Fullness in the super ior anterior mediastinum is due to ectatic vasculature most likely. No paratracheal lymph nodes are i dentified. No hilar lymph nodes. Large hiatal hernia causing increased fullness posterior to the hear t. This corresponds to the findings on the recent chest radiograph. Vessels: Ectatic atherosclerosis aorta. Mildly prominent pulmonary artery. Chest wall and lower neck: No soft tissue masses. Upper abdomen: Large intrathoracic hiatal hernia. Low-attenuation mass LEFT adrenal gland measures 3. 2 x 3.6 cm. Hounsfield units are most consistent with an adenoma. Suprarenal calcified plaque within the aorta. Visualized gallbladder is negative. Renal atrophy involving the upper poles. Incompletely visualized cystic mass superior LEFT kidney measures 5.2 x 5.6 cm. Immediate parapelvic cyst. Hydrone phrosis is not excluded. The calyces do not appear dilated therefore favor this is a parapelvic cyst. Osseous structures: Marked increase in the thoracic kyphosis. Severe osteopenia. CT/CT chest wo con [id number] IMPRESSION: 1. Large hiatal hernia. Corresponds to the findings on the recent chest radiog raph. No mediastinal mass identified on this unenhanced exam. 2. Small bilateral pleural effusions, RIGHT greater than LEFT. 3. Mild cardiomegaly with a small pericardial effusion. 4. 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
[2022-10-11 07:13] LABS: Erythrocyte Sedimentation Rate 8 mm/hr (0-10)
[2022-10-11 07:26] LABS: LAB Peripheral Smear Sent for Review
[2022-10-11 07:30] LABS: Ionized Calcium 1.1 mmol/L (1.1-1.4)
[2022-10-11 07:37] LABS: Free T4 Free Thyroxine 0.97 ng/dL (0.82-1.77); Lactate Dehydrogenase 177 U/L (135-225); Magnesium 1.6 mg/dL (1.7-2.3); T3 Free 1.5 PG/ML (2.0-4.4); Uric Acid 5.7 mg/dL (3.4-7.0)
[2022-10-11 08:25] LABS: 25 Hydroxy Vitamin D 39 ng/mL (30-100)
[2022-10-11] MEDS: aspirin 325 mg Tablet PO (08:41)
[2022-10-11] MEDS: doxazosin 4 mg Tablet 8 MG PO (08:41)
[2022-10-11] MEDS: atorvastatin 40 mg Tablet 20 MG PO (08:41)
[2022-10-11] MEDS: pantoprazole 40 mg SDV IVP (08:41)
[2022-10-11] MEDS: ferrous sulfate EC 325 mg Tablet PO (08:41)
[2022-10-11] MEDS: sucralfate 1 gm Tablet PO (08:41)
[2022-10-11] MEDS: docusate sodium 100 mg Capsule PO (08:41)
[2022-10-11] MEDS: calcium carb-vit d 600mg/400unit 1 Tablet 1 EACH PO (08:41)
[2022-10-11] MEDS: iron sucrose 200 MG in sodium chloride 0.9% (100 ml) 100 ML 220 MG IV (08:42)
[2022-10-11] MEDS: magnesium sulfate premix 2 GM/50 ML PIGGYBACK IV (10:40)
--- NOTE | 2022-10-11 10:41 | ANE.PACU2 ---
Inpatient post-anesthesia follow up: Airway intact: Yes Vital signs: Temperature 98.4 F Pulse Rate 97 Respiratory Rate 18 Blood Pressure 112/76 Pulse Oximetry 97 Oxygen Delivery Me thod Room Air Oxygen Flow Rate 6 Fraction of Inspir ed Oxygen 21 Hydration adequate: Yes Nausea and vomiting: No Pain level: 2 Mental status: Baseline
[2022-10-11 11:50] LABS: Basophils % 0.3 %; Eosinophils % 0.6 %; Hematocrit 26.8 % (42.0-52.0); Hemoglobin 8.1 g/dL (11.7-16.6); Lymphocytes # 0.3 10^3/uL (0.8-4.8); Lymphocytes % 8.6 %; Mean Corpuscular HGB Conc 30.2 g/dL (30.0-36.0); Mean Corpuscular Hemoglobin 30.5 pg (28.0-34.0); Mean Corpuscular Volume 100.8 fl (80-94); Mean Platelet Volume 10.3 fL (7.4-10.4); Monocytes # 0.4 10^3/uL (0.2-0.9); Monocytes % 10.8 %; Neutrophils # 2.87 10^3/uL (1.8-7.7); Neutrophils % 79.4 %; Nucleated Red Blood Cells % 0 %; Platelet Count 148 10^3/cmm (130-400); Red Blood Count 2.66 10^6/uL (4.1-5.3); Red Cell Distribution Width 16.3 % (12.1-15.1); White Blood Count 3.6 10^3/uL (4.0-10.0)
--- NOTE | 2022-10-11 13:39 | P.DS_ITS ---
Discharge Providers Date of Admission: 10/10/22 16:57 Date of Discharge: October 11, 2022 Attending Provider at Admission: Kishor Chavira DO Attending Provider at Discharge: Kishor Chavira DO Diagnoses at Discharge Discharge Diagnosis (1) Iron (Fe) deficiency anemia: Status: Acute (2) History of GI bleed: Status: Acute (3) HTN, goal below 130/80: Status: Acute (4) Fracture dislocation of left ankle: Status: Acute (5) Hyperglycemia: Status: Acute Reason for Visit Reason for Visit: L Ankle Pain Hospital Course Hospital Course Bernarda Mendoza is a 87 year old male with a past medical history of hypertension, iron deficiency anemia, who presents [facility] as he was getting out of his truck, slipped on the ice twisting his left ankle, was not able to bear weight, no head trauma, no loss of consciousness.? He is found to have a closed left ankle fracture, reduced in the emergency room, hospitalist team was called for admission.? I was able to get some of the history from patient's , she tells me that he does not have a cardiovascular treatment history of strokes no history of diabetes does have hypertension.? Recently in August he had a hospital admission at [facility] in [facility] for iron deficiency anemia, hemorrhagic shock, GI bleed, required 3 units PRBC, and ICU admission.? They did an EGD and colonoscopy without a source of bleeding.? He was readmitted 1 more time after that, again no source of bleeding was found.? No history of DVT or PEs.? He does have a family history of colon cancer.? They did say that if he were to bleed again he would need another colonoscopy.? He is on oral iron tablets.? Patient was admitted to [facility] for closed left ankle fracture, status postsurgical intervention by Dr. Chavira, discharged with oxycodone for pain to be used sparingly, aspirin for DVT prophylaxis, nonweightbearing left lower extremity, follow-up with Dr. Chavira in 2 weeks Patient had acute on chronic anemia during his hospitalization, with evidence of iron deficiency anemia, requiring IV Venofer here. No hemodynamic compromise, no bloody or black stools, he has already had an EGD and colonoscopy without source of bleeding at outside hospital. Nonetheless we will discharge him on Protonix, Carafate with close follow-up with hematology oncology for considerati on of bone marrow evaluation. Hemoglobin discharge 8.1. Patient had evidence of hypocalcemia with elevated PTH, normal vitamin D, slightly low magnesium at 1.6. 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 Was asymptomatic, discharged on calcium supplementation therapy vitamin D supplementation follow-up with Dr. Barahona as outpatient Physical Exam Const: COMMON NORMALS: no acute distress and patient oriented x3 Resp: COMMON NORMALS: normal respiratory effort, No retractions, No use of accessory muscles and clear to auscultation bilaterally AUSCULTATION: clear to auscultation bilaterally Cardio: COMMON NORMALS: regular rate, regular rhythm, S1 normal heart sound present and S2 normal heart sound present RATE: regular rate RHYTHM: regular rhythm HEART SOUNDS: S1 normal heart sound present and S2 normal heart sound present GI: COMMON NORMALS: Normal to inspection, nondistended, normoactive bowel sounds present and non-tender Extremity: COMMON NORMALS: no pedal edema Neuro: COMMON NORMALS: patient oriented x3 Psych: COMMON NORMALS: mental status grossly normal Discharge Data Studies Completed and Pending Completed Studies During Hospitalization Category Date Time Status CT chest wo con [id number] Routine Cat Scan 10/11/22 06:42 Completed XR ankle LT 2V [id number] Stat Exams 10/10/22 14:40 Completed XR ankle LT min 3V* [id number] Routine Exams 10/10/22 Completed XR ankle LT min 3V* [id number] Stat Exams 10/10/22 14:13 Completed XR chest 1V portable [id number] Routine Exams 10/10/22 19:15 Completed Pending at discharge Category Date Time Status Occult Blood Stool [Immunochemical Fecal OCB] Routine Lab 10/10/22 19:15 Uncollected Radiology Impressions Ankle X-Ray 10/10/22 14:40 IMPRESSION: Marked improvement in the fracture alignment involving the distal tibia and fibula postreduction. Chest X-Ray 10/10/22 19:15 IMPRESSION: 1. Mildly abnormal mediastinal silhouette concerning for possible lymphadenopathy for which follow-up CT chest recommended for further assessment. 2. 9 cm retrocardiac mass possibly vascular nature secondary to hiatal hernia that can also be reassessed on CT examination chest. 3. Prominent skin fold limiting assessment of the left mid lung zone. Chest CT 10/11/22 06:42 IMPRESSION: 1. Large hiatal hernia. Corresponds to the findings on the recent chest radiograph. No mediastinal mass identified on this unenhanced exam. 2. Small bilateral pleural effusions, RIGHT greater than LEFT. 3. Mild cardiomegaly with a small pericardial effusion. 4. 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 Laboratory Results WBC 3.6 10^3/uL (4.0-10.0) L 10/11/22 11:42 RBC 2.66 10^6/uL (4.1-5.3) L 10/11/22 11:42 Hgb 8.1 g/dL (11.7-16.6) L 10/11/22 11:42 Hct 26.8 % (42.0-52.0) L 10/11/22 11:42 MCV 100.8 fl (80-94) H 10/11/22 11:42 MCH 30.5 pg (28.0-34.0) 10/11/22 11:42 MCHC 30.2 g/dL (30.0-36.0) 10/11/22 11:42 RDW 16.3 % (12.1-15.1) H 10/11/22 11:42 Plt Count 148 10^3/cmm (130-400) 10/11/22 11:42 MPV 10.3 fL (7.4-10.4) 10/11/22 11:42 Neut % (Auto) 79.4 % 10/11/22 11:42 Lymph % (Auto) 8.6 % 10/11/22 11:42 Greenlee % (Auto) 10.8 % 10/11/22 11:42 Eos % (Auto) 0.6 % 10/11/22 11:42 Baso % (Auto) 0.3 % 10/11/22 11:42 Neut # (Auto) 2.87 10^3/uL (1.8-7.7) 10/11/22 11:42 Lymph # (Auto) 0.3 10^3/uL (0.8-4.8) L 10/11/22 11:42 Greenlee # (Auto) 0.4 10^3/uL (0.2-0.9) 10/11/22 11:42 Eos # (Auto) 0.0 10^3/uL (0.0-0.8) 10/11/22 11:42 Baso # (Auto) 0.0 10^3/uL (0.0-0.1) 10/11/22 11:42 Nucleated RBC % (auto) 0 % 10/11/22 11:42 Nucleated RBCs # 0.0 /100WBC 10/11/22 11:42 ESR 8 mm/hr (0-10) 10/11/22 07:00 Haptoglobin 175.0 mg/L (30-200) 10/11/22 07:00 Sodium 143 mmol/L (136-145) 10/11/22 01:29 Potassium 3.6 mmol/L (3.5-5.1) 10/11/22 01:29 Chloride 114 mmol/L (98-107) H 10/11/22 01:29 Carbon Dioxide 20 mmol/L (22-29) L 10/11/22 01:29 Anion Gap 12.6 (5-19) 10/11/22 01:29 BUN 22 mg/dL (8-23) 10/11/22 01:29 Creatinine 1.2 mg/dL (0.7-1.2) 10/11/22 01:29 GFR Calculation Not Reportable 10/11/22 01:29 Glucose 71 mg/dL (65-115) 10/11/22 01:29 POC Glucose 116 mg/dL (70-110) H 10/10/22 21:17 Estimat Average Glucose 105 10/10/22 13:09 Hemoglobin A1c 5.3 % (4.0-6.0) 10/10/22 13:09 Calculated Osmolality 298 mOsm/kg (285-295) H 10/11/22 01:29 Uric Acid 5.7 mg/dL (3.4-7.0) 10/11/22 07:00 Calcium 7.4 mg/dL (8.5-10.5) L 10/11/22 01:29 Ionized Calcium Dayday 1.1 mmol/L (1.1-1.4) 10/11/22 07:00 Phosphorus 3.0 mg/dL (2.5-4.5) 10/11/22 07:00 Magnesium 1.6 mg/dL (1.7-2.3) L 10/11/22 07:00 Iron 14 ug/dL (59-158) L 10/10/22 19:49 TIBC 174 mcg/dl 10/10/22 19:49 % Saturation 8.0 % (20-50) L 10/10/22 19:49 Unsat Iron Binding 160 ug/dL (112-347) 10/10/22 19:49 Ferritin 49 ng/mL (30-400) 10/10/22 19:49 Lactate Dehydrogenase 177 U/L (135-225) 10/11/22 07:00 Creatine Kinase 127 U/L (39-308) 10/10/22 19:49 Troponin T Baseline 35 ng/L (0-15) H 10/10/22 19:49 Troponin T 120 Minute 35.52 ng/L (0-15) H 10/10/22 21:47 Delta Troponin T 0.52 ABS# (0-10) 10/10/22 21:47 Troponin T Hi Sens 6Hr 37.09 ng/L (0-15) H 10/11/22 01:29 Troponin T Hi Sens 6Hr Delta 2.09 ng/L (0-12) 10/11/22 01:29 NT-Pro-B Natriuret Pep 1609 pg/mL (0-450) H 10/10/22 19:49 Vitamin B12 378 pg/mL (232-1245) 10/10/22 19:49 25-OH Vitamin D Total 39 ng/mL (30-100) 10/11/22 07:00 Folate > 20.0 ng/mL (4.5-32.2) 10/10/22 19:49 TSH 6.49 uIU/mL (0.27-4.20) H 10/10/22 19:49 Free T4 0.97 ng/dL (0.82-1.77) 10/11/22 07:00 Free T3 1.5 PG/ML (2.0-4.4) L 10/11/22 07:00 PTH Intact 114.0 pg/mL (15-65) H 10/10/22 19:49 Calcium (PTH Intact) 7.8 mg/dL (8.5-10.5) L 10/10/22 19:49 Urine Color Yellow (Yellow) 10/11/22 02:25 Urine Appearance Clear (CLEAR) 10/11/22 02:25 Urine pH 5 (5-7) 10/11/22 02:25 Ur Specific Sharon 1.020 (1.005-1.030) 10/11/22 02:25 Urine Protein Trace (Negative) 10/11/22 02:25 Urine Glucose (UA) Norm (Normal) 10/11/22 02:25 Urine Ketones Negative (Negative) 10/11/22 02:25 Urine Blood Neg (Negative) 10/11/22 02:25 Urine Nitrate Negative (Negative) 10/11/22 02:25 Urine Bilirubin Neg (Negative) 10/11/22 02:25 Urine Urobilinogen Norm mg/dL (Negative) 10/11/22 02:25 Ur Leukocyte Esterase Negative (Negative) 10/11/22 02:25 Urine RBC 0-4 /hpf (0-2) H 10/11/22 02:25 Urine WBC None /hpf (0-5) 10/11/22 02:25 Ur Squamous Epith Cells 0-4 /hpf (0-5) H 10/11/22 02:25 Calcium Oxalate Crystal None /hpf 10/11/22 02:25 Uric Acid Crystals N /hpf 10/11/22 02:25 Triple Phos Crystals None /hpf 10/11/22 02:25 Amorphous Sediment 1+ /hpf 10/11/22 02:25 Urine Bacteria None /hpf (NONE) 10/11/22 02:25 Hyaline Casts 0-4 /lpf H 10/11/22 02:25 Fine Granular Casts 0-4 /lpf H 10/11/22 02:25 Urine Mucus 1+ /hpf 10/11/22 02:25 Vitals Last Vital Signs Temp 98.5 F 10/11/22 12:00 Pulse 66 10/11/22 12:00 Resp 18 10/11/22 12:00 BP 134/74 10/11/22 12:00 Pulse Ox 97 10/11/22 12:00 O2 Del Method 10/11/22 12:00 O2 Flow Rate 6 10/10/22 18:21 FiO2 21 10/11/22 05:10 Discharge Plan Discharge Patient Disposition: Home Condition: Stable Prescriptions: New oxycodone 5 mg tablet 5 mg PO Q8H PRN (Reason: pain) 7 Days Qty: 21 0RF sucralfate 1 gram Tablet 1 g PO Q12H 30 Days Qty: 60 0RF aspirin 325 mg Tablet 325 mg PO DAILY 14 Days Qty: 28 0RF calcium carbonate-vitamin D3 600 mg-10 mcg (400 unit) Tablet 1 ea PO BID 30 Days Qty: 60 0RF docusate sodium 100 mg Capsule 100 mg PO BID 30 Days Qty: 60 0RF pantoprazole [Protonix] 40 mg tablet,delayed release (DR/EC) 40 mg PO BID 30 Days Qty: 60 0RF calcium carbonate 500 mg calcium (1,250 mg) tablet 500 mg PO BID 30 Days Qty: 60 0RF Continued amlodipine [Norvasc] 2.5 mg tablet 2.5 mg PO DAILY ferrous sulfate [FeroSul] 325 mg (65 mg iron) tablet 325 mg PO BID Cardura 8 mg Tablet 8 mg PO DAILY lisinopril 10 mg tablet 10 mg PO DAILY fluticasone propionate 50 mcg/actuation spray,suspension 1 spray INTRANASAL DAILY Crestor 5 mg tablet 5 mg PO DAILY Tab-A-Danial 400 mcg tablet 1 tab PO DAILY Discontinued fluconazole 200 mg tablet 200 mg PO DAILY Claritin 10 mg tablet 10 mg PO DAILY Discharge Orders: Discharge Order (Routine); Ordered 10/11/22 Ordered By: Emil Morales Other Ambulatory Orders: DME: Walker (Order) Location: None Selected Ordered By: Kishor Chavira DME: Wheelchair (Order) Location: None Selected Ordered By: Kishor Chavira Referrals: Lopez Pepe MD [Hospitalist] - 2 weeks (fe defeciency) Kishor Chavira DO [Physician] - 2 weeks Blaire Barahona MD [Physician] - 1 week (hypocalcemia) Discharge Diet: Cardiac Discharge Activity: Limit activity as instructed Patient Instructions: Opioid Safety Activity Restrictions/Additional Instructions: - Nonweightbearing lower extremity -Please use oxycodone sparingly for pain -Do not drive or operate heavy machinery or drink for taking medication -For your anemia please have your primary care provider recheck your hemoglobin on Saturday -Please take Protonix, Carafate as prescribed -If you develop bloody or black stools or lightheadedness please go to the emergency room -Please follow-up with hematology oncology in 2 weeks for anemia -Please follow-up with Dr. Barahona in 1 week for hypocalcemia -Please follow-up with your primary care provider on Saturday for recheck calcium, hemoglobin Discharge Attestations Time Spent in Discharge Care*: less than 30 min Quality Metrics Clinical Quality Measures [ No reported AMI, CVA or VTE this stay] Coding Level of Care Code Acute Code for Chg Fwd Diagnoses Iron (Fe) deficiency anemia D50.9 History of GI bleed Z87.19 HTN, goal below 130/80 I10 Fracture dislocation of left ankle S82.892A Hyperglycemia R73.9
--- NOTE | 2022-10-11 16:49 | P.PN_ITS ---
Subjective Subjective: Patient seen evaluated this morning. No issues overnight. Patient resting comfortably at bedside. Splint on in place clean dry and intact is able to wiggle toes. States pain is well controlled. We will get up and work with therapy today. Patient states he like to discharge home later today i f possible. Plan will be for aspirin 325 daily which was discussed with internal medicine for discharge for DVT prophylaxis. Will receive appropriate discharge instruction as well as pain medication postoperatively. We will follow-up with me in the office in 2 weeks. Vitals/I&O/Wt Last Vital Signs Temp 98.5 F 10/11/22 12:00 Pulse 102 H 10/11/22 14:00 Resp 18 10/11/22 12:00 BP 134/74 10/11/22 12:00 Pulse Ox 97 10/11/22 12:00 O2 Del Method 10/11/22 12:00 O2 Flow Rate 6 10/10/22 18:21 FiO2 21 10/11/22 05:10 10/11/22 10/11/22 10/11/22 06:59 14:59 22:59 Intake Total 1050 / 1950 1170 / 1170 Output Total 600 / 610 Balance 450 / 1340 1170 / 1170 Weight last 48 hrs Weight 145 lb Physical Exam Narrative: Left lower extremity inspected and posterior splint on in place well-padded. Toes are warm well-perfused brisk capillary refill less than 2 seconds. Patient endorses sensation intact light touch to the SPN and DPN nerve distribution. Distal pulses are palpable. Patient is able to wiggle toes. Data 10/11/22 11:42 10/11/22 01:29 A&P Assessment and plan (1) Fracture dislocation of left ankle: Plan Nonweightbearing left lower extremity Maintain splint until follow-up Keep splint clean dry and intact PT/OT DVT prophylaxis Ice and elevate Internal medicine on board as primary Pain control Stable for discharge from orthopedic standpoint?orthopedic surgery team will s ign off patient at this time and follow peripherally. If there is any questions pertaining patient's care for her for contact myself. Patient to follow-up with me in the office in 2 weeks. Patient understands and agrees with current plan. All questions answered. Attestations Medical Necessity Statement*: Postoperative care left ankle bimalleolar fracture dislocation Coding Level of Care Code Acute Code for [facility] Fwd Diagnoses Fracture dislocation of left ankle S82.892A Time Spent (min) 20
== END 2022-10-11 17:08 | disposition home health service (06) ==
LOC: ER 16:19 → OR 16:31 → MEDSURG 16:58
PROVIDERS: Family Medicine; Admitting Provider Student in an Organized Health Care Education/Training Program; Emergency Provider Emergency Medicine; Visit Provider Student in an Organized Health Care Education/Training Program
PROC: (CPT 27760; principal; 2022-10-10 16:30)
DX: S82.842A Displaced bimalleolar fracture of left lower leg, initial encounter for closed fracture (principal); W00.0XXA Fall on same level due to ice and snow, initial encounter; D50.9 Iron deficiency anemia, unspecified; Z87.19 Personal history of other diseases of the digestive system; R73.9 Hyperglycemia, unspecified; I10 Essential (primary) hypertension; K44.9 Diaphragmatic hernia without obstruction or gangrene; J90 Pleural effusion, not elsewhere classified; Z87.891 Personal history of nicotine dependence; I49.8 Other specified cardiac arrhythmias; I45.10 Unspecified right bundle-branch block
CPT/HCPCS: 27760; 27792; 27829; 27810; 36415; 36416; 71045; 71250; 73600; 73610; 76000; 80048; 80503; 81001; 82306; 82310; 82330; 82550; 82607; 82728; 82746; 82962; 83010; 83036; 83540; 83550; 83615; 83735; 83880; 83970; 84100; 84439; 84443; 84481; 84484; 84550; 85025; 85651; 93005; 96365; 96367; 96375; 96376; 97116; 97161; 97165; 97530; 99285; C1713; C9113; G0378; J0690; J1756; J1885; J2405; J2704; J2710; J3010; J3475; J3490; J7030

== ENCOUNTER → 2022-10-18 09:53 | Outpatient (BNVA) | payer MEDICARE, OTHER, SELFPAY | PROVIDERS: Visit Provider Student in an Organized Health Care Education/Training Program | DX: S82.892A Other fracture of left lower leg, initial encounter for closed fracture (principal); X58.XXXA Exposure to other specified factors, initial encounter | CPT/HCPCS: 73610; 99024; A4590 ==

== ENCOUNTER → 2022-10-31 10:29 | Outpatient (BNVA) | payer MEDICARE, OTHER, SELFPAY | PROVIDERS: Visit Provider Nurse Practitioner Family | DX: S82.892A Other fracture of left lower leg, initial encounter for closed fracture (principal); X58.XXXA Exposure to other specified factors, initial encounter | CPT/HCPCS: 73610; 99024 ==

== ENCOUNTER 2022-10-31 15:48 | Outpatient (CLI) | payer MEDICARE, OTHER, SELFPAY | END 2022-10-31 15:49 | disposition home or self-care (01) | LOC: SPT 15:51 | PROVIDERS: Visit Provider Nurse Practitioner Family | DX: Z46.89 Encounter for fitting and adjustment of other specified devices (principal); S82.892D Other fracture of left lower leg, subsequent encounter for closed fracture with routine healing; X58.XXXD Exposure to other specified factors, subsequent encounter | CPT/HCPCS: 97760; L4361 ==

== ENCOUNTER → 2022-11-28 09:03 | Outpatient (BNVA) | payer MEDICARE, OTHER, SELFPAY | PROVIDERS: Referring Provider Family Medicine; Visit Provider Internal Medicine | DX: E83.51 Hypocalcemia (principal); E83.42 Hypomagnesemia; I10 Essential (primary) hypertension; E03.8 Other specified hypothyroidism | CPT/HCPCS: 36415; 80053; 82310; 83735; 83970; 84439; 84443; 84480; 99204 ==

== ENCOUNTER → 2022-12-07 09:43 | Outpatient (BNVA) | payer MEDICARE, OTHER, SELFPAY | PROVIDERS: Visit Provider Student in an Organized Health Care Education/Training Program | DX: S82.892A Other fracture of left lower leg, initial encounter for closed fracture (principal); X58.XXXA Exposure to other specified factors, initial encounter | CPT/HCPCS: 73610 ==

== ENCOUNTER → 2023-02-11 09:21 | Outpatient (BNVA) | payer MEDICARE, OTHER, SELFPAY | PROVIDERS: Visit Provider Student in an Organized Health Care Education/Training Program | DX: S82.845D Nondisplaced bimalleolar fracture of left lower leg, subsequent encounter for closed fracture with routine healing (principal); X58.XXXD Exposure to other specified factors, subsequent encounter | CPT/HCPCS: 73610; 99213 ==

== ENCOUNTER → 2024-05-12 08:31 | Outpatient (BNVA) | payer MEDICARE, OTHER, SELFPAY | PROVIDERS: Visit Provider Nurse Practitioner Family | DX: Z12.83 Encounter for screening for malignant neoplasm of skin (principal); L57.0 Actinic keratosis; D23.21 Other benign neoplasm of skin of right ear and external auricular canal; L82.1 Other seborrheic keratosis; D22.62 Melanocytic nevi of left upper limb, including shoulder; Z85.828 Personal history of other malignant neoplasm of skin | CPT/HCPCS: 17000; 99203 ==